=== PATIENT | female | born 1950 | race Caucasian/White ===

== ENCOUNTER → 2017-01-14 | Outpatient (CLI) | payer MEDICARE, BC ==
[2016-10-12 11:45] VITALS: BP 152/72
[~2017-01-14] MED LIST: ACET500T68 PO; Albuterol Sulfate NEB; BENZ100C2 PO; CETI10TA16 PO; CLON0.5T3 PO; CONTRAST GIVEN MC PRN; DEXL60CA PO; EXEM25TA2 PO; FIBER CHOICE; FLUO20TA11 PO; FLUO40CA2 PO; FLUT16SP NS; HEPARIN PF 500 UNIT/5 ML DISP.SYRIN. IV ONE; HYDR25TA9 PO; IOHEXOL 240 MG/ML 50ML VIAL. PO ONE; IOHEXOL 300 MG/ML 75 ML VIAL IV ONE; LEVO25TA2 PO; LEVO50TA5 PO; LEVO750T31 PO; LISI10TA2 PO; LISI40TA PO; METR500T4 PO; PANT40TA5 PO; PRED-220 PO; PROAIR HFA8.5 GM IH; PROM118S2 PO; RIVA20TA2 PO; SIMV40TA3 PO; VALA1000 PO; ZOLP5TAB PO; [UNRECOGNIZED DRUG - CODE] IV; [UNRECOGNIZED DRUG - CODE] TP; colon health
--- NOTE | 2017-01-14 09:23 | RAD ---
EXAM: Right lower quadrant ultrasound. HISTORY: Palpable focus right lower quadrant. History of breast cancer. COMPARISON: None. FINDINGS: Sonographic evaluation of the palpable focus of concern along the right lower quadrant was performed. This reveals a shadowing subcutaneous mass with echogenic rim suggesting calcification. It measures 2.4 x 1.4 x 1.4 cm. Doppler suggests flow on the periphery, but this may be artifact from calcification. Its deep margin is difficult to assess given shadowing, but extension into deeper compartments is not seen. IMPRESSION: 1. A 2.4 x 1.4 cm subcutaneous mass at the site of concern appears calcified. This is indeterminate but suggests fat necrosis. Correlate for an injection granuloma, prior surgery or trauma. Percutaneous biopsy could establish tissue diagnosis if there is further concern.
--- NOTE | 2017-01-14 11:35 | RAD ---
CT of the chest, abdomen and pelvis with contrast, 01/14/2017: History: Metastatic breast cancer Multidetector CT imaging was performed following oral and IV administration of contrast. Comparison is made to a study from 08/03/2014. A right Port-A-Cath extends to the level of the atriocaval junction. There is a small hiatal hernia. No mediastinal or hilar adenopathy is seen. No pulmonary mass or significant infiltrate is seen. Small areas of minimal pleural thickening are noted posteriorly in the right lower chest as seen on image 37 of series #2. These are slightly more prominent on the previous study. No pleural fluid is evident. There are surgical clips adjacent to an area of coarse heterogeneous calcification in the inferior aspect of the right breast. A similar appearance was present on the previous study. This most likely represents postsurgical fat necrosis. No hepatic abnormality is detected. The gallbladder is unremarkable. No pancreatic abnormality is seen. The spleen is within normal limits in size. No renal abnormality is detected. The adrenal glands are unremarkable. There is a tiny subcentimeter nodule adjacent to the left adrenal gland which is unchanged. This may represent a bit of accessory splenic tissue. The abdominal aorta is unremarkable. No abdominal or pelvic adenopathy is seen. Colonic diverticulosis is present, most extensive in the sigmoid region. The bowel loops are not dilated. There are surgical clips in the right lower quadrant. No free fluid or free air is evident in the abdomen or pelvis. Moderate degenerative changes are present in the lumbar spine., Most severe at the L2-3 disc level. There is a mild reverse spondylolisthesis at that level due to facet joint arthropathy. There is an expansile, mixed lytic and sclerotic process involving the mid sternum. It was also present on the previous study, although better demonstrated on today's sagittal images. It has shown no definite change. IMPRESSION: 1. Stable sternal metastasis. 2. Small foci of mild pleural thickening posteriorly in the right chest, probably due to scarring. There is no associated pleural fluid to suggest developing pleural-based metastatic disease. 3. Stable partially calcified mass in the right breast compatible with fat necrosis. 4. No CT evidence of metastatic disease in the abdomen or pelvis. 5. Extensive sigmoid diverticulosis. PQRS Compliance Statement: One or more of the following individualized dose reduction techniques were utilized for this examination: 1. Automated exposure control 2. Adjustment of the mA and/or kV according to patient size 3. Use of iterative reconstruction technique
--- NOTE | 2017-01-14 12:36 | RAD ---
EXAM: Bone scintigraphy. HISTORY: Breast cancer. TECHNIQUE: Following the intravenous injection of 25.0 mCi of Tc-99m labeled methylene diphosphonate (MDP), delayed images of the whole body were performed in anterior and posterior projections. Comparison is made with CT of 01/14/2017. FINDINGS: Uptake along the right lower chest wall corresponds with that calcification at the site of prior TRAM reconstruction. Another focus of soft tissue uptake is seen along the right lower quadrant at the site of calcified subcutaneous nodule. Uptake at L2-3 corresponds with severe degenerative disc disease on CT. There is no clear suspicious lesion at that site. Uptake along the right midfoot is also likely degenerative or posttraumatic. Mild uptake at the base of the neck is also likely degenerative. The known sternal metastasis demonstrates only mild uptake consistent with an inactive lesion. No additional foci of intense uptake suggestive of osseous metastatic disease are identified. IMPRESSION: 1. The sternal metastasis demonstrates only mild uptake suggesting an inactive lesion. 2. Soft tissue uptake in the right breast and right lower quadrant corresponds with fat calcification most likely indicating fat necrosis. 3. Degenerative uptake as above.
== END | disposition home or self-care (01) ==
LOC: NM 08:44
PROVIDERS: ATTEND Internal Medicine Hematology & Oncology
DX: C79.51 Secondary malignant neoplasm of bone (principal); R91.8 Other nonspecific abnormal finding of lung field; N63 Unspecified lump in breast; K57.30 Diverticulosis of large intestine without perforation or abscess without bleeding; Z85.3 Personal history of malignant neoplasm of breast
CPT/HCPCS: 71260; 74177; 78306; 93975; 96374; A9503; Q9966; Q9967

== ENCOUNTER → 2017-02-24 | Outpatient (CLI) | payer MEDICARE, BC ==
[2016-10-12 11:45] VITALS: BP 152/72
[~2017-02-24] MED LIST changes: -CONTRAST GIVEN MC PRN; -HEPARIN PF 500 UNIT/5 ML DISP.SYRIN. IV ONE; -IOHEXOL 240 MG/ML 50ML VIAL. PO ONE; -IOHEXOL 300 MG/ML 75 ML VIAL IV ONE
--- NOTE | 2017-02-24 11:42 | CARD ---
APPROVED REPORT EXAM: LIMITED Two-dimensional echocardiogram. Other Information Quality : Average Rhythm : NSR INDICATION LV Function:Systolic Evaluation of chemotherapy treatment LEFT VENTRICLE The left ventricle is normal size. There is normal left ventricular wall thickness. Left ventricle sy stolic function is normal. The Ejection Fraction is 55%. GLS Avg -16.14% There is normal LV segmental wall motion. RIGHT VENTRICLE The right ventricle is normal size. The right ventricular systolic function is normal. ATRIA The left atrium size is normal. The right atrium size is normal. GREAT VESSELS na PERICARDIAL EFFUSION There is no evidence of significant pericardial effusion. Critical Notification Critical Value: No <Conclusion> Limited echo to assess LV function. Color flow and doppler not performed. Left ventricle systolic function is normal. The Ejection Fraction is 55%. There is normal LV segmental wall motion. There is no evidence of significant pericardial effusion.
== END | disposition home or self-care (01) ==
LOC: ECHO 07:54
PROVIDERS: ATTEND Internal Medicine Hematology & Oncology
DX: C50.411 Malignant neoplasm of upper-outer quadrant of right female breast (principal)
CPT/HCPCS: 93308

== ENCOUNTER → 2018-12-08 | Outpatient (CLI) | payer MEDICARE, BC ==
[2016-10-12 11:45] VITALS: BP 152/72
[~2018-12-08] MED LIST changes: +ALBU2.5V8 IH; +BENZ-8 PO; -BENZ100C2 PO; +CLON0.5T11 PO; -CLON0.5T3 PO; -DEXL60CA PO; +DEXL60CA2 PO; +HYDR-2145 PO; -HYDR25TA9 PO; +IOHEXOL 240 MG/ML 50ML VIAL. PO ONE; +IOHEXOL 300 MG/ML 100ML VIAL. IV ONE; -LEVO25TA2 PO; +LEVO25TA55 PO; +LISI-130 PO; -LISI40TA PO; +METR-34 PO; -METR500T4 PO; -PANT40TA5 PO; +PANT40TA77 PO; -PROAIR HFA8.5 GM IH; -PROM118S2 PO; +PROM118S5 PO
--- NOTE | 2018-12-08 13:42 | RAD ---
CT of the chest, abdomen and pelvis with contrast, 12/08/2018: History: Follow-up breast cancer Multidetector CT imaging was performed following oral and IV administration of contrast. Comparison is made to a study from 01/14/2017. The contrast was injected in the left arm. Multiple collateral veins are opacified in the lower neck and paraspinous regions. 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 There is minimal calcific plaquing of the thoracic aorta. No mediastinal, hilar or internal mammary adenopathy is evident. There is a small hiatal hernia. There is minimal linear scarring in the lungs. No pulmonary mass or significant infiltrate is seen. Slight pleural thickening seen posteriorly in the right lower chest has regressed. Currently no pleural-based mass or pleural fluid is evident. There is a 5 cm mass which is partially calcified in the inferior aspect of the right breast with adjacent surgical clips. This appears unchanged since the previous study. This most likely represents fat necrosis. No new breast abnormality or axillary adenopathy is seen. No hepatic abnormality is identified. The gallbladder is unremarkable. The pancreas shows no abnormality. The spleen is of normal size. No renal abnormality is detected. No abdominal or pelvic adenopathy is identified. The uterus is unremarkable. There is moderate colonic diverticulosis, most extensive in the sigmoid and descending colon. No paracolonic inflammatory process is seen. The bowel loops are not dilated. No free fluid is evident in the pelvis. There are moderate scattered degenerative changes in the spine. There are severe disc space narrowing at L2-3 with mild retrolisthesis at that level due to facet joint arthropathy. There is an unchanged expansile mixed sclerotic and lucent lesion involving the mid sternum. No new lytic or sclerotic lesions are seen. IMPRESSION: 1. Stable sternal metastasis. 2. Stable partially calcified right breast mass compatible with fat necrosis. 3. No CT evidence of additional metastatic disease in the chest, abdomen or pelvis. 4. Miscellaneous chronic findings as described above. PQRS Compliance Statement: One or more of the following individualized dose reduction techniques were utilized for this examination: 1. Automated exposure control 2. Adjustment of the mA and/or kV according to patient size 3. Use of iterative reconstruction technique
--- NOTE | 2018-12-08 16:49 | RAD ---
Examination: Whole body bone scan HISTORY: History of breast cancer, follow-up COMPARISON: 01/14/2017 Findings: There is focal tracer uptake identified in the right breast region likely secondary to large dystrophic calcification similar to prior exam. There is a diffuse radiotracer uptake identified in the skull on similar to prior exam probably physiological. There is no evidence of focal radiotracer uptake identified to suggest osteoblastic skeletal metastasis. Mild degenerative changes identified in the right knee and lower lumbar spine. IMPRESSION: 1. No evidence of osteoblastic skeletal metastasis. 2. Focal tracer uptake identified in the right breast region likely secondary to large dystrophic calcification similar to prior exam. Electronically signed by: Nick Guzman MD (12/08/2018 4:45 PM) [id number]
== END | disposition home or self-care (01) ==
LOC: NM 09:31
PROVIDERS: ATTEND Internal Medicine Hematology & Oncology
DX: C50.911 Malignant neoplasm of unspecified site of right female breast (principal); K44.9 Diaphragmatic hernia without obstruction or gangrene; R92.8 Other abnormal and inconclusive findings on diagnostic imaging of breast; K57.30 Diverticulosis of large intestine without perforation or abscess without bleeding; M47.816 Spondylosis without myelopathy or radiculopathy, lumbar region; M17.11 Unilateral primary osteoarthritis, right knee; Z17.0 Estrogen receptor positive status [ER+]; Z88.5 Allergy status to narcotic agent; Z88.2 Allergy status to sulfonamides; Z88.0 Allergy status to penicillin
CPT/HCPCS: 71260; 74177; 78306; 96374; A9503; Q9966; Q9967

== ENCOUNTER → 2018-12-24 | Outpatient (CLI) | payer MEDICARE, BC ==
[2016-10-12 11:45] VITALS: BP 152/72
[~2018-12-24] MED LIST changes: -IOHEXOL 240 MG/ML 50ML VIAL. PO ONE; -IOHEXOL 300 MG/ML 100ML VIAL. IV ONE; -METR-34 PO; +METR-84 PO; +PANT40TA5 PO; -PANT40TA77 PO
--- NOTE | 2018-12-24 12:16 | RAD ---
EXAM: PET/CT SKULL BASE TO MID THIGH. 12/24/2018 HISTORY: Malignant neoplasm of the female right breast, follow-up. Right breast mastectomy. COMPARISON: CT chest, abdomen and pelvis 12/08/2018, 01/14/2017, all body bone scan 01/14/2017. TECHNIQUE: CT was performed from the skull base through the mid thighs for the purposes of attenuation correction. 11.9 mCi F-18 fluorodeoxyglucose (FDG) was administered intravenously. After an uptake period, positron emission tomography was performed from the skull base through the mid thighs. The PET and CT data were fused and interpreted in combination a dedicated workstation. Blood glucose level was 93 mg/dL at the time of FDG administration. FINDINGS: Head and neck: There is asymmetric FDG uptake at the left posterior nasopharyngeal wall near the fossa of Rosenmuller with a maximum SUV of 4.9 and no associated soft tissue mass on the low-dose CT images. No hypermetabolic cervical lymphadenopathy. Chest: Postsurgical changes of a right mastectomy and reconstruction. There is a peripherally calcified fatty structure in the flap reconstruction of the right breast consistent with fat necrosis. No suspicious hypermetabolic mass or lymphadenopathy. Abdomen and pelvis: There is physiologic uptake in both kidneys with excretion into the urinary bladder. There is a small hiatal hernia with low-level patchy FDG uptake within the hiatal hernia in the gastric cardia with maximum SUV of 4.1 and there is associated soft tissue thickening measuring 2.0 cm in thickness series 3/image 114. No hypermetabolic hepatic metastasis or abdominal or pelvic lymphadenopathy. There is patchy FDG uptake throughout the large bowel without associated soft tissue correlate, and likely physiologic. Osseous structures: There is a stable expansile mixed sclerotic and lytic lesion of the sternum with no associated significant FDG uptake above background. No suspicious hypermetabolic osseous lesion. Uncorrected PET images: No additional abnormality. Low-dose CT images: Peripherally calcified mid splenic arterial aneurysm. Moderate sigmoid diverticulosis without evidence of acute diverticulitis. Impression: 1. Asymmetric FDG uptake in the posterior left nasopharyngeal wall, indeterminate, though malignancy is not excluded. Direct visualization is recommended. 2. Hypermetabolic soft tissue thickening of the gastric fundus extending to a small hiatal hernia, indeterminate between inflammatory uptake versus gastric malignancy versus gastric metastatic disease. EGD could be obtained for further evaluation.
== END | disposition home or self-care (01) ==
LOC: PETSC 10:03
PROVIDERS: ATTEND Internal Medicine Hematology & Oncology
DX: C50.211 Malignant neoplasm of upper-inner quadrant of right female breast (principal); M89.9 Disorder of bone, unspecified; K44.9 Diaphragmatic hernia without obstruction or gangrene; K57.30 Diverticulosis of large intestine without perforation or abscess without bleeding; I72.8 Aneurysm of other specified arteries; Z17.0 Estrogen receptor positive status [ER+]; Z88.5 Allergy status to narcotic agent; Z88.0 Allergy status to penicillin; Z88.2 Allergy status to sulfonamides; Z90.11 Acquired absence of right breast and nipple
CPT/HCPCS: 78815; A9552